=== PATIENT | male | born 1930 | race Caucasian/White ===

== ENCOUNTER 2019-03-31 11:32 | Inpatient (IN) | payer MEDICARE, OTHER ==
[~2019-03-31] VITALS: Ht 175.3 cm; Wt 95.5 kg
[2019-03-31] MEDS ORDERED: SIMVASTATIN10 MG PO (11:53)
[2019-03-31] MEDS ORDERED: METOPROLOL SUCC25 MG PO (11:53)
--- NOTE | 2019-03-31 15:45 | NUR ---
88 YEAR OLD MALE PATIENT ADMITTED TO CCU FROM ED VIA STRETCHER UNDER DR. GARCIA WITH DX OF GIB. PATIENT STATES HE HAD 2 BLOODY STOOLS AT HOME THIS MORNING. UPON ADMIT PT IS ALERT ORIENTED AND COOPERATIVE. DENEIS PAIN OR NAUSEA. STATES HE HAS ALITTLE LOWER ABD PRESSURE. ADMISSION PROCESS STARTED. TAKING BOWEL PREP WITHOUT PROBLEMS.
[2019-03-31] MEDS ORDERED: SIMVASTATIN40 MG PO (16:55)
[2019-03-31] MEDS ORDERED: ASPIR 8181 MG PO (16:56)
[2019-03-31] MEDS ORDERED: TRIAMCINOLONE A15 G2 TOP (16:57)
--- NOTE | 2019-03-31 16:58 | NUR ---
Medications reconciled using pharmacy records and patient interview. Patient takes ASA 81mg twice daily
--- NOTE | 2019-03-31 17:45 | NUR ---
UP TO COMMODE WITH ASSIST TO EXPELL DARK STOOL. BACK TO BED W/O PROBLEMS. CONTINUE TO TAKE PREP.
--- NOTE | 2019-03-31 18:32 | NUR ---
RESTFUL, WATCHING TV, DRINKING BOWEL PREP.
--- NOTE | 2019-03-31 19:00 | NUR ---
UP TO COMMODE TO EXPELL DARK LIQUID STOOL.
--- NOTE | 2019-03-31 19:30 | NUR ---
SHIFT REPORT RECEIVED FROM KIM LR. PT RECENTLY UP TO BSC, IS CURRENTLY BACK IN BED AND RESTING. CALL LIGHT WITHIN REACH.
--- NOTE | 2019-03-31 20:20 | NUR ---
IN TO GIVE EVENING MEDICATIONS, PT WAS SLEEPING BUT WOKE EASILY WHILE I WAS IN THE ROOM. ASSESSMENT COMPLETED, SEE DOCUMENTATION. ENCOURAGED PT TO CONTINUE DRINKING BOWEL PREP, WHICH HE IS CLOSE TO FINISHING, AND REMINDED PT THAT HE WILL BE NPO AT 0300 TONIGHT. IV SITES INTACT, WNL. SCD'S IN PLACE. PT DENIES FURTHER REQUESTS AT THIS TIME.
--- NOTE | 2019-03-31 21:05 | NUR ---
PT UP TO [facility], HAD 900ML LIQUID BLACK STOOL MIXED WITH URINE. SCANT AMOUNT OF COFFEE-GROUND MATERIAL ALSO NOTED IN STOOL. PT RETURNED TO BED, NO FURTHER REQUESTS AT THIS TIME.
--- NOTE | 2019-03-31 21:41 | NUR ---
PT UP TO BSC, 500ML DARK LIQUID STOOL MIXED WITH URINE. RETURNED TO BED.
--- NOTE | 2019-03-31 22:36 | NUR ---
UP TO BSC, 400ML BLACK LIQUID STOOL MIXED WITH URINE. PT RETURNED TO BED.
--- NOTE | 2019-04-01 00:16 | NUR ---
PT UP TO BSC, 550ML DARK BROWN LIQUID STOOL MIXED WITH URINE. STOOL APPEARS TO BE LIGHTENING IN COLOR, COMPARED TO THE START OF SHIFT. ASSESSMENT COMPLETED, NO CHANGES FROM PREVIOUS ASSESSMENT. PT CONTINUES TO DENY PAIN AND NAUSEA. PT STATES HE HAS BEEN ABLE TO GET A LITTLE BIT OF SLEEP TONIGHT. IV SITES WNL. NO FURTHER REQUESTS AT THIS TIME, CALL LIGHT WITHIN REACH.
--- NOTE | 2019-04-01 02:24 | NUR ---
PT UP TO [facility], HAD 500ML LIQUID BROWN STOOL MIXED WITH URINE, RETURNED TO BED. SCHEDULED METOPROLOL GIVEN. NO FURTHER REQUESTS AT THIS TIME.
--- NOTE | 2019-04-01 04:16 | NUR ---
ASSESSMENT COMPLETED, PT STATES THAT HE HAS A SORE THROAT AND AN EARACHE. REQUESTED SOME WATER, BUT WAS REMINDED THAT HE IS NOW NPO, MOIST SWAB PROVIDED. NO OTHER CHANGES FROM PREVIOUS ASSESSMENT.
--- NOTE | 2019-04-01 04:24 | NUR ---
PT UP TO BSC, 400ML BROWN LIQUID STOOL MIXED WITH URINE. STOOL CONTINUES TO LIGHTEN IN APPEARANCE. PT RETURNED TO BED, NO FURTHER REQUESTS AT THIS TIME.
--- NOTE | 2019-04-01 04:35 | NUR ---
PT SLEEPING, NO APPARENT DISTRESS. RESPIRATIONS EVEN AND UNLABORED. RR:16, HR:76. WILL ALLOW FOR REST AND CONTINUE TO MONITOR.
--- NOTE | 2019-04-01 06:34 | NUR ---
PT UP TO BSC, 300ML LIGHT BROWN LIQUID STOOL MIXED WITH URINE. PT REQUESTS TO REMAIN SITTING UP AT SIDE OF BED AT THIS TIME, CALL LIGHT REMAINS WITHIN REACH.
--- NOTE | 2019-04-01 07:32 | CONS ---
[facility] [address], [place] [address] Signed DATE OF CONSULTATION: 03/31/2019 CHIEF COMPLAINT: Melena. HISTORY OF PRESENT ILLNESS: Stef is an 88-year-old gentleman, who is actually pretty healthy and gets around with good functional status. He takes aspirin 81 mg p.o. b.i.d. He noticed this morning, he had a very black stool with some associated red blood in the toilet. He came to emergency room for evaluation. He has been hemodynamically stable without symptoms. He has been admitted to the Internal Medicine Service. I have been asked to see for consideration of upper and lower endoscopy. He told me he has had 4 or 5 colonoscopies in his life. He thinks maybe they took out colonic polyps. He cannot remember the term diverticulosis. He thinks the last one was at least 4 or 5 years ago. He has had no upper or lower GI complaints recently. PAST MEDICAL HISTORY: Hypertension, coronary artery disease, and colonic polyps. PAST SURGICAL HISTORY: Cardiac stents, right inguinal hernia, and 4 or [address] Booker. SOCIAL HISTORY: He does not smoke. He has an occasional drink. He is , has 2 children. 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 Dr. Shira Funes is his primary care provider. Dr. Dhiraj Nelson is his crankshaft grinder. He is and he prefer [facility]. FAMILY HISTORY: Sister had an IL. Mom had an IL. Dad and his paternal grandfather both lived to be age 92. REVIEW OF SYSTEMS: He had 10 systems reviewed, and he talked about his heart and his colonoscopies. ALLERGIES: None. MEDICATIONS: Metoprolol and then aspirin 81 mg p.o. b.i.d. PHYSICAL EXAMINATION: VITAL SIGNS: Blood pressure 164/70, heart rate 68, respiratory rate 16, O2 sats 98%, Electronically Signed By: SURYA MCMULLEN MD 04/01/19 0732 PATIENT NAME: STEF HIDALGO CONSULTATION DATE OF : [birth year] REPORT #: [id number] PHYSICIAN: SURYA MCMULLEN MD PCP: SHIRA FUNES MD REPORT IS CONFIDENTIAL AND NOT TO BE RELEASED WITHOUT AUTHORIZATION [facility] [address], [place] [address] Signed and his temperature is 98.2. He is 5 feet 9 inches and 95 kg. GENERAL: Stef is an 88-year-old gentleman, who appears healthy and slightly younger than his stated age. He has good muscle mass. He and his are not the best with details. He does not appear pale. LUNGS: Clear to auscultation bilaterally. HEART: Regular rate and rhythm without murmurs. ABDOMEN: Moderately protuberant, but soft and nontender. I did not repeat the rectal exam. LABORATORY DATA: His white blood cell count 6.3, hemoglobin 14, neutrophils 59, and platelets 158. BUN 28, creatinine 0.88. Lactic acid 0.6 and albumin 3.3. His liver function tests are negative. His INR is 1. RADIOGRAPHIC STUDIES: None. ASSESSMENT AND PLAN: Stef is an 88-year-old gentleman, who presents with melena and some blood with his bowel movements while on aspirin twice a day. He is very familiar with colonoscopy and therefore it was simple to explain both upper and lower endoscopy to him currently. He is very familiar with the bowel prep. He is happy to try our new MiraLAX and Gatorade prep. He said it is much better. Because of his advanced age and the acuity of his situation, we will have an anesthesia provider help us with increased monitoring and sedation. We will plan on doing this tomorrow. We will do our best to track down his previous echocardiogram report, and his last colonoscopy. We will also check an EKG and have it on the chart because of his coronary history. He has expressed understanding and agrees to above plan. Surya Mcmullen MD ALB/MODL /[id number] cc: MD Shira Mccormack MD Electronically Signed By: SURYA MCMULLEN MD 04/01/19 0732 PATIENT NAME: STEF HIDALGO CONSULTATION DATE OF : [birth year] REPORT #: [id number] PHYSICIAN: SURYA MCMULLEN MD PCP: SHIRA FUNES MD REPORT IS CONFIDENTIAL AND NOT TO BE RELEASED WITHOUT AUTHORIZATION [facility] [address] [place] [id number] Signed Copies: SURYA MCMULLEN MD, JONATHAN MD ~ Electronically Signed By: SURYA MCMULLEN MD 04/01/19 0732 PATIENT NAME: STEF HIDALGO CONSULTATION DATE OF : [birth year] REPORT #: [id number] PHYSICIAN: SURYA MCMULLEN MD PCP: SHIRA FUNES MD REPORT IS CONFIDENTIAL AND NOT TO BE RELEASED WITHOUT AUTHORIZATION
--- NOTE | 2019-04-01 08:45 | NUR ---
PT UP TO THE BEDSIDE COMMODE VOIDED AND THEN SITTING ON THE SIDE OF THE BED. PT WILL BE GOING TO THE OR WITH IN 30 MINUTES.
--- NOTE | 2019-04-01 09:06 | NUR ---
PT HAD COLONOSCOPY IN [address] TINSLEY OFFICE CALLED TO GET A COPY OF THE REPORT. ALSO CALLED TO [facility] FOR COPY OF PROG NOTES. THEY WILL SEND THEM SOON THEY CAN.
--- NOTE | 2019-04-01 09:30 | NUR ---
PT TO THE OR AT THIS TIME VIA STREACHER. PT WAS ABLE TO AMBULATED FROM THE BED TO THE STREACHER. PT DID VOID BEFORE LEAVING TO THE OR.
--- NOTE | 2019-04-01 10:02 | NUR ---
RECEIVED CALL BACK FROM DR DUNCAN OFFICE THEY WHERE UNABLE TO FIND ANY COPY OR INFORMATION ON A SCOPY THAT WAS DONE ON THIS PATIENT.
--- NOTE | 2019-04-01 10:44 | NUR ---
04/01/19 1044 Sheets,[place] 1030 PT ARRIVED TO PACU ON 4L VIA NC, RESP EVEN AND UNLABORED. PT RESTING IN LEFT SIDE AND REACTIVE TO TACTILE STIMULI. PT DENIES PAIN AND NAUSEA. 1035 PT ENCOURAGED TO ROLL TO BACK. PT ABLE TO FOLLOW COMMANDS. PLAN OF CARE DISCUSSED. 1038 O2 REMOVED.
--- NOTE | 2019-04-01 11:09 | NUR ---
PT RETURNED FROM PACU AT THIS TIME. PT WAS ABLE TO TRASFER SELF FROM STREACHER TO BED WITH ONE PERSON ASSISTANCE. LUNCH ORDERED FOR PT AT THIS TIME.
--- NOTE | 2019-04-01 11:19 | EKG ---
[facility] [address] [facility] [place], [place] [address] Signed Normal sinus rhythm Right bundle branch block Inferior infarct , age undetermined Abnormal ECG No previous ECGs available Confirmed by DEBRA GARCIA MD ([id number]) on 04/01/2019 11:19:08 AM Electronically Signed By: DEBRA GARCIA MD 04/01/19 1119 PATIENT NAME: HEATH HIDALGO Electrocardiogram DATE OF : 09[birth year] PHYSICIAN: DEBRA GARCIA MD REPORT #: [id number] REPORT IS CONFIDENTIAL AND NOT TO BE RELEASED WITHOUT AUTHORIZATION
--- NOTE | 2019-04-01 12:02 | NUR ---
PT UP TO THE COMMODE DID WELL WITH TRANSFER. NO ASSISTANCE NEEDED. PT IS VERY STEADY ON HIS FEET. PT THEN TO THE CHAIR WITH TWO WARM BLANKETS. CALL LIGHT WITHIN REACH.
--- NOTE | 2019-04-01 13:00 | NUR ---
PHONE CALL TO DR MCMULLEN TO INFORM HIM THAT THE PT'S WAS PRESENT. DR MCMULLEN NOT IN THE BULIDING AND IT WAS OKAY TO TELL THE RESULTS OF THE COLONOSCOPY AND EGD THAT TOOK PLACE TODAY. EXPLAINED THAT PT HAS SOME POLYPS REMOVED FROM THE COLON AND SENT TO LAB AND THAT HE HAS A SIGNIFANT DUODENAL ULCER AND THAT HE WILL NOT BE ABLE TO TAKE ASA AND OR NSAIDS FOR 3 MONTHS.
--- NOTE | 2019-04-01 13:23 | NUR ---
PT UP TO THE BEDSIDE COMMODE VOIDED AND BACK TO THE CHAIR. PT IS STEADY ON HIS FEET AND TOLERATES THE ACTIVITY WELL. PT IS IN THE ROOM AT THIS TIME.
--- NOTE | 2019-04-01 14:03 | NUR ---
PT REMAINS UP IN THE CHAIR VISITING WITH HIS AT THIS TIME.
--- NOTE | 2019-04-01 14:39 | NUR ---
PT BACK TO BED AT THIS TIME, WARM BLANKET AND HOT TEA GIVEN TO PT AT THIS TIME. PT IS ALSO COLD AT THIS TIME. SO WARM BLANKET AND HOT TEA GIVEN TO HER ALSO.
--- NOTE | 2019-04-01 17:44 | NUR ---
PT SITTING UP IN BED FOR DINNER AT THIS TIME. PT CONTIOUES TO STATE " I AM NOT VERY HUNGERY".
--- NOTE | 2019-04-01 19:12 | NUR ---
REPORT GIVEN TO OR NURSE MANAGER ALL QUESTIONS ANSWERED AT THIS TIME. PT APPEARS TO BE WATCHING TV AND SLEEPING AT TIMES. PT HAS HAD THE VOLUM TURNED ON LOUD DUE TO HE IS HARD OF HEARING. PT HAS HAD NO BLOODY STOOLS THIS SHIFT AND HAS BEEN ABLE TO TOLERATE ORAL INTAKE. PT REMAINS STEADY ON HIS FEET WHEN GETTING UP TO THE BEDSIDE COMMODE.
--- NOTE | 2019-04-01 20:26 | NUR ---
SHIFT REPORT WAS RECEIVED FROM KIM LINN. ASSESSMENT COMPLETED AT THIS TIME, SEE DOCUMENTATION. PT PROVIDED WITH FRESH ICE WATER. DENIES PAIN AND NAUSEA. IV SITES PATENT, IVF INFUSING WNL. SCD'S. PT DENIES NEEDS AT THIS TIME, CALL LIGHT WITHIN REACH.
--- NOTE | 2019-04-02 00:12 | NUR ---
PT SLEEPING AT THIS TIME, NO APPARENT DISTRESS. RESPIRATIONS EVEN AND UNLABORED, RR:19, SPO2:95% ON RA, HR:70. WILL ALLOW FOR REST AND CONTINUE TO MONITOR.
--- NOTE | 2019-04-02 02:00 | NUR ---
IN TO GIVE SCHEDULED METOPROLOL, PT SLEEPING AT THIS TIME, VITAL SIGNS STABLE.
--- NOTE | 2019-04-02 03:00 | NUR ---
PT UP TO BSC TO VOID, THEN RETURNED TO BED. CALL LIGHT REMAINS WITHIN REACH.
--- NOTE | 2019-04-02 04:23 | NUR ---
ASSESSMENT COMPLETED. PT CONTINUES TO DENY PAIN AND NAUSEA. LUNGS REMAIN CLEAR, RA. PT COMPLAINS OF OCCASIONAL COUGH, HARD CANDY PROVIDED TO HELP SOOTHE DISCOMFORT. NO OTHER CHANGES FROM PREVIOUS ASSESSMENT, CALL LIGHT REMAINS WITHIN REACH. IV SITES PATENT AND INTACT.
--- NOTE | 2019-04-02 06:38 | NUR ---
PT UP TO BATHROOM TO BRUSH TEETH AND WASH HANDS. BREAKFAST ORDERED. COMMODE EMPTIED OF 700ML URINE. PT NOW SITTING UP IN CHAIR, CALL LIGHT WITHIN REACH.
--- NOTE | 2019-04-02 06:39 | OR ---
[facility] [address] [place], [place] [address] Signed DATE OF OPERATION: 04/01/2019 SURGEON: Surya Mcmullen MD PREOPERATIVE DIAGNOSES: 1. Melena (rectal bleeding). 2. Personal history of colonic polyps. 3. Aspirin p.o. b.i.d. POSTOPERATIVE DIAGNOSES: 1. Significant duodenal ulcer in pyloric bulb. 2. Significant diffuse gastritis. 3. 5 mm cecal polyp. 4. 5 mm polyp, distal right colon. 5. 8 mm pedunculated polyp at 18 cm/rectosigmoid junction (snare). 6. Moderate sigmoid diverticulosis. 7. Moderate internal hemorrhoids. PROCEDURES PERFORMED: 1. EGD with CLOtest and biopsies of the pyloric bulb, antrum, and body of stomach. 2. Colonoscopy, snare polypectomy, and hot biopsy. ESTIMATED BLOOD LOSS: None indications Stef is an 88-year-old gentleman who has been using aspirin 81 mg p.o. b.i.d. for a number of years after his cardiac stents. He came in the emergency room with black stool and some blood associated with the stool in the toilet. In the emergency room, he was hemodynamically stable with a hemoglobin of 14. He was admitted to the Internal Medicine Service. I was asked to see him in consultation. He said he has had at least 4 or 5 colonoscopies in the past with colonic polyps removed. He said he has had some heart strain, but his cardiac stents for his coronary artery disease. We track down his annual echocardiogram and he does have aortic stenosis with aortic valve cross-sectional area of 1.2 cm2. Interestingly, I did hear a murmur on auscultation. However, they have been watching that quite closely. Apparently, it has been asymptomatic. He could not recall if he had any history of diverticulosis. We tried to track down his previous colonoscopy reports without success. Meantime, he has gone through his bowel prep yesterday. He has done quite well. His hemoglobin is down a little bit at 13.7. No further bleeding. He seems to have no upper or lower GI complaints. I met with Stef in the hospital and I explained to him that it would be griffith to not only do an upper endoscopy but a lower endoscopy as well. He is very familiar with endoscopy. He understands there is risk including, but not limited to gas Electronically Signed By: SURYA MCMULLEN MD 04/02/19 0639 PATIENT NAME: STEF HIDALGO OPERATIVE REPORT DATE OF : 09[birth year] REPORT #: [id number] PHYSICIAN: SURYA MCMULLEN MD PCP: SHIRA ESCOTO MD REPORT IS CONFIDENTIAL AND NOT TO BE RELEASED WITHOUT AUTHORIZATION [facility] [address] [place] [id number] Signed bloating, crampy abdominal pain, bleeding, perforation, requiring surgery, and missed diagnoses. Also because of his advanced age and his very stiff neck with inability to extend, we asked that an anesthesia provider help us with increased airway monitoring and infusion of propofol. He had expressed understanding wished to proceed. PROCEDURE: Janis was taken into our endoscopy suite and placed in a supine semi-recumbent position. The posterior oropharynx was anesthetized with Hurricaine spray. A bite block was utilized for the case. He was given IV sedation with propofol per our nurse tile setter. Again, it is difficult to elevate his chin his jaw at secondary to the fact that his neck would not extend. The adult gastroscope was introduced and advanced out into the third portion of the duodenum under direct visualization of camera. The duodenum was unremarkable. He has a rather significant ulcer in his pyloric bulb. No active bleeding. We took a biopsy next to it with the help of the cold biopsy forceps. His stomach also showed fairly significant diffuse gastritis. We took a biopsy of the antrum for CLOtest as well as pathologic review. We also took a biopsy of the body for pathologic review. Upon retroflexion of scope, I did not see an esophageal ulcer. I did not see a hiatal hernia. He had a very tiny ulcerated area in the antrum. Difficulty gallbladder true ulcer. No gastric or esophageal varices. The scope was withdrawn up through the area of the GE junction, which was compliant without stricture. Very minimal disruption to the Z-line. No Fraga's mucosa and no distal esophagitis. The middle and upper esophagus were unremarkable. After this, the gas was suctioned out and the gastroscope removed. Stef tolerated his upper endoscopy quite well. Stef was rotated into the left lateral decubitus position. He was maintained on IV sedation with the IV propofol. A digital rectal exam was performed and this was unremarkable. The prostate was not particularly concerning. The adult colonoscope was introduced and advanced all around into the cecum under direct visualization of the camera without difficulty. The above-mentioned polyps were removed with the help of hot biopsy forceps. We did use the snare at 18 cm. This is the rectosigmoid junction. He also has moderate sigmoid diverticulosis. No active source of bleeding throughout the entire colon. Upon retroflexion of the scope, he does have moderate internal hemorrhoids. The gas was then suctioned out and colonoscope removed. Stef tolerated his lower endoscopy quite well. RECOMMENDATIONS: Stef will be returned to the ICU and started on a full liquid diet. He needs to be off aspirin and NSAIDs for 12 full weeks to allow this significant duodenal ulcer to heal. He needs to be on a proton pump inhibitor. During that time, he might consider an H2 chichi or proton pump inhibitor after that if he is going to continue on daily aspirin due to his cardiac stents. I will see him in my office in a week or so after discharge. Electronically Signed By: SURYA MCMULLEN MD 04/02/19 0639 PATIENT NAME: STEF HIDALGO OPERATIVE REPORT DATE OF : 09/[birth year] REPORT #: [id number] PHYSICIAN: SURYA MCMULLEN MD PCP: SHIRA ESCOTO MD REPORT IS CONFIDENTIAL AND NOT TO BE RELEASED WITHOUT AUTHORIZATION [address] [address] Signed MD GRISELDA Mccormack/MODL /[id number] cc: MD Shira Loco MD Andrew L Bower, MD Copies: DAYRON CARTER MD, JONATHAN MD BOWER, ANDREW L MD ~ Electronically Signed By: SURYA MCMULLEN MD 04/02/19 0639 PATIENT NAME: STEF HIDALGO OPERATIVE REPORT DATE OF : 09/[birth year] REPORT #: [id number] PHYSICIAN: SURYA MCMULLEN MD PCP: SHIRA ESCOTO MD REPORT IS CONFIDENTIAL AND NOT TO BE RELEASED WITHOUT AUTHORIZATION
--- NOTE | 2019-04-02 09:01 | NUR ---
PATIENT FINISHED BREAKFAST AND IS SITTING UP IN CHAIR WATCHING TV. PATIENT DOES NOT COMPLAIN OF ANY PAIN OR NAUSEA. BELLY IS DISTENDED BUT PATIENT STATES NORMAL. PATIENT STATED HE HAS LOST A LITTLE WEIGHT AROUND HIS WAIST BUT NOT IN HIS BELLY. PATIENT DESCRIBED A FULL FEELING IN LOWER ABDOMEN THE PAST WEEK AND CAME TO ER WHEN HE SAW BLOOD IN STOOL. PATIENT STATES HE NO LONGER FEELS THIS FULLNESS AND FEELS MUCH BETTER. PATIENT IS HOPEFUL HE WILL BE ABLE TO GO HOME TODAY.
--- NOTE | 2019-04-02 10:36 | NUR ---
PATIENT AMBULATED TO BATHROOM AFTER USING CALL LIGHT. PATIENT URINATED BUT FLUSHED BEFORE ASSESSING. PATIENT WALKED BACK TO CHAIR AND IS RESTING. PATIENT TOLERATED ACTIVITY WELL AND WILL BE TRANSPORTED TO MED/SURG FLOOR ROOM 108. PATIENT DIENS PAIN, DIZZINESS, AND NAUSEA.
--- NOTE | 2019-04-02 10:58 | NUR ---
GAVE FULL REPORT ON PATIENT TO KIM SANZ ON MED/SURG UNIT WITH NO OTHER QUESTIONS. ALL PATIENT'S BELONGINGS WERE TRANSFERED WITH PATIENT. PATIENT WAS TRANFERED VIA ROOM CHAIR AND IS SITTING IN CHAIR IN MED/SURG ROOM. PATIENT HAS CALL LIGHT IN REACH AND WAS INSTRUCTED TO USE CALL LIGHT IF ANYTHING WAS NEEDED. PATIENT HAD NO OTHER NEEDS OR CONCERNS.
--- NOTE | 2019-04-02 11:08 | NUR ---
1055: PT ARRIVED TO MED-SURG A TRANSFER FROM CCU VIA A RECLINER WITH FAMILY PRESENT. PT DENIES ANY CURRENT PROBLEMS AND WAS ORIENTED TO HIS ROOM. CALL SÁNCHEZ PLACED WITHIN REACH.
--- NOTE | 2019-04-02 12:20 | NUR ---
Pt sitting in his chair and is having lunch at this time. He denies any problems at this time.
--- NOTE | 2019-04-02 13:35 | NUR ---
Pt resting in the chair visiting with his family. He continues to deny any pain, sob or other problems.
--- NOTE | 2019-04-02 13:51 | NUR ---
PATIENT SITTING UP IN CHAIR. VISITORS IN ROOM. VITAL SIGNS DONE. I&O DONE BY RN. CALL LIGHT WITHIN REACH. NO OTHER NEEDS AT THIS TIME
--- NOTE | 2019-04-02 14:02 | NUR ---
PT TRANSFERRED TODAY FROM CCU TO M/S. HE WAS SITTING IN CHAIR LOOKING OUT WINDOW, AND VISITING WITH HIS FAMILY. PT STATED THAT SINCE [facility] MOVED INTO THE NEW [facility]OS[facility], CARE HAS GREATLY IMPROVED. BOTH HE AND HIS SEEM VERY PLEASED WITH LEVEL OF CARE. HAD GOOD VISIT, EXTENDED A BLESSING. WILL FOLLOW NEEDED
--- NOTE | 2019-04-02 15:06 | NUR ---
Pt got himself back to bed by himself. He states that he remains stable on his feet and that he feels strong. He denies any pain or problems. Call glasgow within reach.
--- NOTE | 2019-04-02 16:20 | NUR ---
Pt sleeping at this time.
--- NOTE | 2019-04-02 17:47 | NUR ---
PT RESTING IN BED WITHOUT ANY COMPLAINTS. HE IS AWAITING HIS DINNER AT THIS TIME. PT UP TO HIS CHAIR.
--- NOTE | 2019-04-02 19:34 | NUR ---
Patient resting quietly in his chair watching tv. No pain and no needs at this time.
--- NOTE | 2019-04-02 20:49 | NUR ---
PATIENT UP TO THE BATHROOM TO VOID IN THE URINAL AND IS NOW IN BED CALL LIGHT IN REACH AND NO PAIN.
--- NOTE | 2019-04-02 23:00 | NUR ---
PATIENT RESTING QUIETLY, EYES CLOSED, RESPIRATIONS REGULAR AND EVEN.
--- NOTE | 2019-04-03 01:00 | NUR ---
PATIENT RESTING QUIETLY, EYES CLOSED, RESPIRATIONS ARE REGULAR AAND EVEN AT 16. CALL LIGHT IN REACH.
--- NOTE | 2019-04-03 03:02 | NUR ---
PATIENT AWAKE AND HAVING NO PAIN. HAS USED THE URINAL AND FRESH ICE WATER GIVEN. PATIENT IS IN SR IN THE 60'S. CALL LIGHT IN REACH. PATIENT IS GOING TO TRY AND GET SOME MORE SLEEP.
--- NOTE | 2019-04-03 03:04 | NUR ---
PATIENT RESTING QUIETLY SUPINE AND REPIRATIONS ARE REGULAR AND NORMAL AT 16. CALL LIGHT IN REACH.
--- NOTE | 2019-04-03 05:20 | NUR ---
PATIENT SAYS,"I SLEPT REALLY WELL LAST NIGHT." PATIENT DENIES ANY PAIN AND HAS BEEN INDEPENDENT IN TO THE RESTROOM. WOKE UP ABOUT 0130 FOR A SHORT TIME AND OTHER FOR ASSESSMENTS HE HAS SLEPT. IV FLUSHES WELL AND PATIENT HAS NO COMPLAINTS. NO BLOODY STOOLS, NO STOOLS AT ALL. ON TELE#8 RUNNING SR IN THE 60'S MOST OF THE NIGHT.
--- NOTE | 2019-04-03 07:18 | NUR ---
BEDSIDE REPORT RECIEVED FROM CHRISTINA ALVAREZ. PT RESTING IN HIS CHAIR AND DENIES ANY PAIN, SOB OR WEAKNESS AT THIS TIME. H&H INCREASED FROM YESTERDAYS RESULTS. PT STATES HE SLEPT WELL. TELE SR ON NUMBER 8.
--- NOTE | 2019-04-03 07:52 | NUR ---
PT CONTINUES RESTING IN HIS CHAIR WITHOUT ANY COMPLAINTS. CALL SÁNCHEZ REMAINS IN REACH.
--- NOTE | 2019-04-03 09:43 | NUR ---
PT INDEPENDENT IN HIS ROOM, HE CONTINUES TO DENIE ANY PROBLEMS.
--- NOTE | 2019-04-03 09:46 | NUR ---
PT HAD A SMALL FORMED STOOL WITH NO NOTED BLOOD.
--- NOTE | 2019-04-03 11:02 | NUR ---
PT WAS UP-GETTING TO SHAVE AND GETTING READY FOR HIS BRIDE TO COME FOR HIM AT [place]. PT MENTIONED THAT HE SLEPT WELL, NO MORE BLOOD LOSS! EXTENDED A BLESSING, WILL FOLLOW NEEDED
[2019-04-03] MEDS ORDERED: CLARITHROMYCIN500 MG PO (11:50)
[2019-04-03] MEDS ORDERED: PANTOPRAZOLE SO40 MG PO (11:52)
[2019-04-03] MEDS ORDERED: AMOXICILLIN500 M1 PO (11:52)
[2019-04-04] MEDS ORDERED: LEVAQUIN500 MG PO (17:46)
== END 2019-04-03 12:30 | disposition home or self-care (01) | DRG 379 ==
LOC: ED 11:32 → CCU 14:58 → MS 04-02 10:55
PROVIDERS: Colon & Rectal Surgery; ADMIT Internal Medicine
PROC: 0DBN8ZX Excision of Sigmoid Colon, Via Natural or Artificial Opening Endoscopic, Diagnostic (ICD-10-PCS; 2019-04-01)
PROC: 0DBE8ZX Excision of Large Intestine, Via Natural or Artificial Opening Endoscopic, Diagnostic (ICD-10-PCS; 2019-04-01)
PROC: 0DB68ZX Excision of Stomach, Via Natural or Artificial Opening Endoscopic, Diagnostic (ICD-10-PCS; principal; 2019-04-01 09:45)
PROC: 0DB78ZX Excision of Stomach, Pylorus, Via Natural or Artificial Opening Endoscopic, Diagnostic (ICD-10-PCS; 2019-04-01 09:45)
DX: K29.71 Gastritis, unspecified, with bleeding (principal); K26.4 Chronic or unspecified duodenal ulcer with hemorrhage; B96.81 Helicobacter pylori [H. pylori] as the cause of diseases classified elsewhere; I10 Essential (primary) hypertension; I25.10 Atherosclerotic heart disease of native coronary artery without angina pectoris; K57.31 Diverticulosis of large intestine without perforation or abscess with bleeding; K63.5 Polyp of colon; E83.51 Hypocalcemia; K64.8 Other hemorrhoids; I35.0 Nonrheumatic aortic (valve) stenosis; Z86.010 Personal history of colon polyps; Z95.5 Presence of coronary angioplasty implant and graft; Z79.82 Long term (current) use of aspirin; Z79.899 Other long term (current) drug therapy
CPT/HCPCS: 36415; 80048; 80053; 83605; 85025; 85610; 86677; 86850; 86900; 86901; 88305; 88342; 93005; 93010; 96361; 96374; 99285-25; C9113; J0610; J2250; J2704; J3480; J7040; J7060; J7120